=== PATIENT | female | born 1955 | race Caucasian/White ===

== ENCOUNTER 2018-10-07 09:24 | Outpatient (CLI) | payer OTHER ==
--- NOTE | 2018-10-07 10:25 | ULT ---
US Abdominal History: [Abdominal pain] Comparison: None. Findings: Real-time grayscale and color evaluation of the abdomen was performed. Pancreas not well seen. Aorta and IVC appear unremarkable. Diffuse increased hepatic echotexture. Gallbladder is normal. Negative sonographic Willson sign. No hepatic mass. No pericholecystic fluid. Portal vein is patent with antegrade flow. Common bile michael t measures 5 mm, normal. Liver measures 15.7 cm in length. Right kidney measures 9 x 3.9 x 6.3 cm and left kidney measures 8.7 x 4.9 x 5 cm. No renal mass, hydr onephrosis, or abnormal calcifications. Spleen measures 10.6 cm in length. Impression: 1. Diffuse hepatic steatosis. 2. No acute gallbladder pathology. 3. Small bilateral kidneys.
== END 2018-10-07 09:25 | disposition home or self-care (01) ==
LOC: ULT 09:24
PROVIDERS: ATTEND Nurse Practitioner Family
DX: R10.9 Unspecified abdominal pain (principal); R11.2 Nausea with vomiting, unspecified; K76.0 Fatty (change of) liver, not elsewhere classified
CPT/HCPCS: 76700